=== PATIENT | female | born 1970 | race African-American/Black ===

== ENCOUNTER 2018-07-04 23:41 | Emergency (ER) | payer BC ==
[2018-07-05] MEDS ORDERED: Ketorolac Tromethamine 30 MG/ML VIAL ONE (00:47)
[2018-07-05 01:11] LABS: #Eosinphils 0.4 thou/uL (0.0-0.7); #Lymphocytes 2.9 thou/uL (1.20-3.40); #Monocytes 1.1 thou/uL (0.11-0.59); #Neutrophils 7.3 thou/uL (1.40-6.50); %Basophils 0.4 % (0.0-1.0); %Eosinophils 3.8 % (0.0-10.0); %Lymphocytes 24.4 % (21.0-51.0); %Monocytes 9.4 % (0.0-10.0); Hemoglobin 11.8 g/dL (12.0-16.0); Mean Corpuscular HGB CONC 31.5 g/dL (32.0-36.0); Mean Corpuscular Hemoglobin 27.5 pg (27.0-31.0); Mean Corpuscular Volume 87.3 fL (78.0-98.0); Mean Platelet Volume 6.8 fL (7.4-10.4); Platelet Count 204 thou/uL (130-400); Red Blood Cell (RBC) Count 4.27 mill/uL (4.20-5.40); White Blood Cell (WBC) Count 11.8 thou/uL (4.8-10.8)
[2018-07-05 01:31] LABS: Anion Gap 12 mmol/L (10-20); BUN (Urea Nitrogen) 18 mg/dL (7.0-18.7); CK (CPK) 60 U/L (29-168); Calc. Creatinine Clearance 0 mL/min (70-130); Calcium 9.6 mg/dL (7.8-10.44); Carbon Dioxide 27 mmol/L (22-29); Chloride 106 mmol/L (98-107); Estimated GFR-MDRD Greater than 90; Glucose 113 mg/dL (70-105); Potassium 4.6 mmol/L (3.5-5.1); Sodium 140 mmol/L (136-145)
--- NOTE | 2018-07-05 08:50 | ULT ---
PRELIMINARY REPORT/[facility]/EMERGENCY AFTER HOURS PROCEDURE: EXAM: US Duplex Left Lower Extremity Veins, Limited EXAM DATE/TIME: 07/05/2018 1:32 AM CLINICAL HISTORY: 47 years old, female; Pain; Leg, lower; Left TECHNIQUE: Imaging protocol: Real-time Duplex ultrasound of the Left Lower Extremity with 2-D aceves scale, color Doppler flow and spectral waveform analysis. Limited exam focused on the left lower extremity veins. COMPARISON: No relevant prior studies available. FINDINGS: Left deep veins: Unremarkable. The common femoral, femoral, proximal profunda femoral and popliteal v eins are patent without thrombus. Normal Doppler waveforms. Normal compressibility and/or augmentatio n response. Left superficial veins: Unremarkable. Saphenofemoral junction is patent without thrombus. Soft tissues: Unremarkable. IMPRESSION: No acute findings. No evidence of deep vein thrombosis. Thank you for allowing us to participate in the care of your patient. Dictated and Authenticated by: Jarett Cuadra MD 07/05/2018 2:59 AM Central Time ([place] & [place]) FINAL REPORT LEFT LOWER EXTREMITY VENOUS DUPLEX EXAM: Date: 07/05/18 IMPRESSION: No evidence of left lower extremity deep venous thrombosis. I am in agreement with the preliminary report issued by [facility]. POS: OFF
== END 2018-07-05 02:30 | disposition home or self-care (01) ==
LOC: ERS 23:41
DX: M54.32 Sciatica, left side (principal); E03.9 Hypothyroidism, unspecified; I10 Essential (primary) hypertension; F41.9 Anxiety disorder, unspecified; F31.9 Bipolar disorder, unspecified; Z79.899 Other long term (current) drug therapy
CPT/HCPCS: 36415; 80048; 82550; 85025; 85379; 96372; J1885

== ENCOUNTER 2018-07-23 02:18 | Emergency (ER) | payer BC, SELFPAY | END 2018-07-23 03:00 | disposition home or self-care (01) | LOC: ERS 02:18 | DX: R20.2 Paresthesia of skin (principal); I10 Essential (primary) hypertension; F41.9 Anxiety disorder, unspecified; F31.9 Bipolar disorder, unspecified; E03.9 Hypothyroidism, unspecified; Z79.899 Other long term (current) drug therapy ==

== ENCOUNTER 2022-11-26 10:17 | Outpatient (CLI) | payer MEDICARE | END 2022-11-26 10:18 | disposition home or self-care (01) | LOC: RAD 10:17 | PROVIDERS: ATTEND Nurse Practitioner Family | DX: R09.89 Other specified symptoms and signs involving the circulatory and respiratory systems (principal) | CPT/HCPCS: 71046 ==

== ENCOUNTER 2023-08-21 08:32 | Outpatient (CLI) | payer MEDICARE | END 2023-08-21 08:33 | disposition home or self-care (01) | LOC: BICMAMMO 08:32 | PROVIDERS: ATTEND Family Medicine | DX: Z12.31 Encounter for screening mammogram for malignant neoplasm of breast (principal); Z80.3 Family history of malignant neoplasm of breast | CPT/HCPCS: 77063; 77067 ==